=== PATIENT | female | born 1970 | race Caucasian/White ===

== ENCOUNTER 2025-03-13 13:10 | Emergency (ER) | payer OTHER, SELFPAY ==
[2025-03-13 13:17] VITALS: BP 138/75
--- NOTE | 2025-03-13 15:55 | ED.GENMED ---
History of Present Illness
General
Chief Complaint: Crisis Evaluation
Time Seen by Provider: 03/13/25 13:22
Nursing documentation reviewed up to this point in time: agreed with
History of Present Illness
History of Present Illness:
54-year-old nonbinary patient presents to the ER for feelings of frustration and homelessness. Patient prefers to be called Delonte. Patient states they been compliant with all of their psychiatric medications and have been sleeping well. They
have been eating and drinking without difficulty. They have no physical complaints today. Patient reports that they had been living in a detention but made the choice to leave due to feeling disrespected and lack of indication with other
residents there. Patient also states that they have strains with her family due to their sexual orientation. They report feeling suicidal and would prefer to be than continue to feel this way but does not have a specific plan
Past History
Past History
ED Past Medical History: Psychiatric (Bipolar disorder)
ED Past Surgical History: Cholecystectomy (Patient is status post cholecystectomy one week ago.)
Social History
Tobacco: Non-smoker
Alcohol: None
Drug: None
Personal: Single
Living: with family
Employment: Not employed
Family History
Family History: Other (Noncontributory)
Review of Systems
Review of Systems
Allergies reviewed?: Yes
Phy Exam
Physical Exam
Physical Exam:
Patient is awake, alert, appears in no acute distress, limited eye contact, flat monotone speech pattern, head is NCAT, PERRL, EOMI mucous membranes moist, conjunctiva pink, heart regular rate and rhythm without murmurs or ectopy, lungs are clear to
auscultation without wheezes rales or rhonchi, no JVD, extremities without edema, GCS is 15
Course
Orders/Labs/Results
Orders:
Orders
03/13/25 13:13
Crisis Consult Urgent
Reason for Consult: SI
Vital Signs
Initial and Last Documented VS:
Initial Vital Signs
Pulse Resp BP Pulse Ox
82 16 138/75 80
03/13/25 13:17 03/13/25 13:17 03/13/25 13:17 03/13/25 13:17
Last Documented Vital Signs
Temp Pulse Resp BP Pulse Ox
98.1 F 64 18 123/75 98
03/13/25 18:25 03/13/25 18:25 03/13/25 18:25 03/13/25 18:25 03/13/25 18:25
*Pulse Oximetry
SaO2: 80
Oxygen Mode of Delivery: Room air
Patient hypoxic: no
*Critical Care Note
Total Time (30-74mins, 75-104mins- exclusive of procedures): Not Applicable
Update Note
Update Note:
Patient is resting comfortably. Awaiting crisis input for disposition.
Crisis was able to find patient placement at [facility]. Anticipate pickup at 8:00 tonight.
ED Attending Note
-
Portions of this chart may have been created with voice recognition software.� Occasional wrong word or��sound alike� substitutions may have occurred due to the inherent limitations of voice recognition software.
Discharge Plan
Departure
Patient Disposition: Psych Facility
Date of Disposition: 03/13/25
Time of Disposition: 17:32
Patient with high blood pressure during this ER visit?: No
Discharge Problem:
Homeless, Schizophrenia
Prescriptions:
No Action
lorazepam 0.5 MG tablet
0.5 mg PO Q4H PRN (Reason: panic attacks)
ibuprofen [Advil] 200 MG tablet
200 mg PO PRN (Reason: pain)
escitalopram oxalate [Lexapro] 10 MG tablet
10 mg PO DAILY
lamotrigine [Lamictal ODT] 50 MG tablet,disintegrating
100 mg PO HS
esrqmgeub-hgufbd-qkzpttpo-scop [] 16.2 MG/5 ML elixir
10 ml PO Q8HPRN PRN (Reason: abdominal pain) Qty: 0 0RF
lisinopril 20 MG tablet
20 mg PO DAILY
Referrals:
NONE,* [Family Provider, Internal Medicine]
Interventions
Interventions:
*Risk Screen - Suicide Last Done: 03/13/25 13:11
*ED COVID-19 Vaccine History Last Done: 03/13/25 18:42
*ED Influenza Vaccine History Last Done: 03/13/25 18:42
ED-Psychological Assessment Last Done: 03/13/25 17:26
Discharge Date and Time
Print Language: MONTENEGRIN
[2025-03-13 18:25] VITALS: BP 123/75
== END 2025-03-13 19:49 ==
LOC: EMR 13:10
PROVIDERS: EMERGENCY PHYSICIAN Emergency Medicine
DX: F20.9 Schizophrenia, unspecified (principal); Z59.00 Homelessness unspecified; R45.851 Suicidal ideations; F31.9 Bipolar disorder, unspecified
CPT/HCPCS: 99285